=== PATIENT | male | born 1940 | race Caucasian/White ===

== ENCOUNTER → 2020-05-29 13:09 | Outpatient (CLI) | payer OTHER, SELFPAY ==
--- NOTE | ~2020-05-29 | MR_ITS ---
EXAMINATION: MR brain/brain stem wo con DATE: 05/29/2020 13:48 INDICATION: Memory loss. Vertigo. TECHNIQUE: Magnetic resonance imaging (MRI) of the brain and brainstem was performed without intraven ous contrast. Sequences included sagittal and axial T1-weighted FSE, axial diffusion-weighted FS EPI, axial T2*-weighted GRE, axial T2-weighted FLAIR Propeller, and axial T2-weighted Propeller. Apparent diffusion coefficient (ADC) maps were created. COMPARISON: None. FINDINGS: There are scattered areas of nonspecific increased T2-weighted signal intensity in the cere bral white matter. There is no intracranial hemorrhage, acute infarction, or abnormal intracranial ma ss lesion. The ventricles are normal in size. There is mild mucosal thickening in the paranasal sinus es. There are likely changes of ocular lens replacement surgeries. The mastoid air cells are normal. IMPRESSION: 1. Moderate nonspecific cerebral white matter disease, which likely represents chronic small vessel i schemic disease. Reviewed, dictated and finalized at location A. L OPERATOR IMPRESSION: 1. Moderate nonspecific cerebral white matter disease, which likely represents chronic small vessel ischemic disease.
== END ==
PROVIDERS: PCP Family Medicine Adolescent Medicine; Visit Provider Family Medicine Adolescent Medicine
DX: R41.3 Other amnesia (principal); R42 Dizziness and giddiness; R93.0 Abnormal findings on diagnostic imaging of skull and head, not elsewhere classified
CPT/HCPCS: 70551

== ENCOUNTER → 2020-09-01 13:39 | Outpatient (CLI) | payer OTHER, SELFPAY ==
--- NOTE | ~2020-09-01 | XR_ITS ---
EXAMINATION: XR chest 2V DATE: 09/01/2020 14:29 INDICATION: Shortness of breath. TECHNIQUE: Frontal and lateral views of the chest were obtained. COMPARISON: Chest 2 views 10/12/2018, chest CT 10/16/2018 FINDINGS: The chest demonstrates clear lungs without pneumonia, pleural effusion, or pneumothorax. Th e heart size is normal. There are changes of aortic valve replacement. IMPRESSION: 1. No acute cardiopulmonary disease. Reviewed, dictated and finalized at location A.
== END ==
PROVIDERS: Visit Provider Nurse Practitioner Adult Health
DX: R06.00 Dyspnea, unspecified (principal)
CPT/HCPCS: 71046

== ENCOUNTER → 2020-12-22 14:11 | Outpatient (CLI) | payer OTHER, SELFPAY ==
--- NOTE | ~2020-12-22 | XR_ITS ---
XR chest 2V 12/22/2020 14:37 Indication: Shortness of breath Procedure: 2 view chest Comparison: Comparison to multiple prior studies sequentially, with oldest reviewed study dated 07/19. Findings: Status post median sternotomy for CABG. Heart size normal. No focal air space disease, pulm onary edema, pleural effusion or suspected pneumothorax. There is a prosthetic heart valve. No acute osseous abnormality. Impression: 1: No acute cardiopulmonary disease. Reviewed, dictated and finalized at location A. Impression: 1: No acute cardiopulmonary disease.
== END ==
PROVIDERS: PCP Family Medicine Adolescent Medicine; Visit Provider Physician Assistant
DX: R06.02 Shortness of breath (principal)
CPT/HCPCS: 71046

== ENCOUNTER 2021-01-18 12:29 | Outpatient (CLI) | payer OTHER, SELFPAY ==
--- NOTE | 2021-01-18 16:14 | WPDPFTINT ---
PFT Procedure Performed PFT Procedure Performed Spirometry with Pre/Post Bronchodilator Plethysmography (Lung Vol) Diffusing Cap (DLCO) Flow Vol Loop PFT Interpretation This is a pulmonary function test with pre and post-bronchodilator spirometry, plethysmography and diffusing capacity. The test was performed and results interpreted in accordance with the 2019 and 2005 ATS/ERS Task Force guidelines respectively using the Global Lung Function Initiative-2012 reference equations. Patient demonstrated good effort and cooperation. Reproducibility criteria were met. The quality of the pre bronchodilator spirometry maneuver was Grade A and post bronchodilator spirometry maneuver was Grade A. Findings: Spirometry: The contour the expiratory flow tracing is that of a witch's hat. The contour of the inspiratory flow tracing is normal. The pre bronchodilator FVC is 3.08 L, 78% predicted. The pre bronchodilator FEV1 is 2.33 L, 79% predicted. The FEV1: FVC ratio 76%. The post bronchodilator FVC is 3.10 L, representing 1% increase. The post bronchodilator FEV1 is 2.43 L, representing a 4% increase. Plethysmography: The total lung capacity is 5.27 L, 75% predicted. The functional residual capacity is 2.44 L, 64% predicted. The residual volume is 2.20 L, 84% predicted. Diffusing capacity: The absolute diffusion capacity is 16.3, 67% predicted. The diffusing capacity corrected for alveolar volume is 3.68, 100% predicted. Impression: There is a mild restrictive ventilatory abnormality with a normal FEV1. The spirometry is normal without evidence of an obstructive abnormality. There is no significant improvement after inhaling a single dose of albuterol. The Diffusing capacity is normal. There are no prior studies for comparison
== END 2021-01-18 12:30 | disposition home or self-care (01) ==
PROVIDERS: PCP Family Medicine Adolescent Medicine; Visit Provider Family Medicine Adolescent Medicine
DX: R06.02 Shortness of breath (principal); R94.2 Abnormal results of pulmonary function studies
CPT/HCPCS: 94060; 94726; 94729

== ENCOUNTER 2022-12-17 13:14 | Outpatient (CLI) | payer OTHER, SELFPAY ==
--- NOTE | ~2022-12-17 | CT_ITS ---
EXAMINATION: CT diagnostic chest wo con DATE: 12/17/2022 13:45 INDICATION: Dyspnea with exertion TECHNIQUE: Computed tomography (CT) of the chest was performed without intravenous contrast. The dose -length product was 471.34 mGy-cm. Automated exposure control and iterative reconstruction technique were employed. COMPARISON: CT dated 10/16/2018 FINDINGS: There is mediastinal lymphadenopathy. For instance right paratracheal lymph node measures 1 1 mm short axis, likely reactive. No significant pleural or pericardial effusion. Small hiatal hernia . There are gallstones. There is mild emphysema. There are coarse peripheral interstitial densities, consistent with chronic interstitial lung disease which has progressed since prior examination. There are calcified granulomas. Stable 5 mm left upper lobe nodule, image 50, likely benign. Calcified gra nuloma left upper lobe laterally. IMPRESSION: 1. Stable 5 mm left upper lobe nodule, likely benign. Recommend follow-up low dose CT chest in 12 mon ths. 2: Interval progression of chronic interstitial lung disease. Emphysema. 3: Mediastinal lymphadenopathy, likely reactive. Reviewed, dictated and finalized at location A. IMPRESSION: 1. Stable 5 mm left upper lobe nodule, likely benign. Recommend follow-up low d ose CT chest in 12 months. 2: Interval progression of chronic interstitial lung disease. Emphysema. 3: Mediastinal lymphadenopathy, likely reactive.
== END 2022-12-17 13:15 | disposition home or self-care (01) ==
PROVIDERS: PCP Family Medicine Adolescent Medicine; Visit Provider Nurse Practitioner Adult Health
DX: R06.09 Other forms of dyspnea (principal); R91.1 Solitary pulmonary nodule
CPT/HCPCS: 71250

== ENCOUNTER 2023-01-02 12:34 | Outpatient (CLI) | payer OTHER, SELFPAY ==
--- NOTE | 2023-01-07 17:31 | P.PCNPFT_ITS ---
PFT Procedure Performed PFT Procedure Performed Plethysmography (Lung Vol) Diffusing Cap (DLCO) Flow Vol Loop Spirometry w/o Bronchodil PFT Interpretation DOS: 01/02/2025 REQUESTING: Angela Thompson NP REASON FOR TESTING: Dyspnea on exertion PULMONARY FUNCTION TESTS Results are reliable and reproducible. Spirometry: FEV1 is 2.48 L, 86% predicted, normal. FVC is 3.03 L, 78% predicted, normal. FEV1/FVC is 82%, normal. No bronchodilator was given. Lung volumes: Total lung capacity is 4.31 L, 61%, mild restriction. Residual volume is 1.23 L, 46%. RV/TLC is 29%, below lower limit of normal. Normal airway resistance. Diffusion: DLCO is 13.3, 56%, moderately decreased. DLCO/VA is 3.31, 91%, c orrected for alveolar volume. Flow volume loop: Restrictive pattern. IMPRESSION: No obstruction, mild restriction, moderate diffusion impairment. No bronchodilator was given. Compared to a study 01/18/2021, there is progression of restriction and diffusion impairment. Spirometry is the same, TLC was 75% equal to 5.27 L, now about 1 L lower and 61%. The DLCO was 16.3 and 67%, now 13.1 and 56%. The DLCO/VA was 3.68 and 100%, now 3.31 and 91%. Marion Thurman MD
== END 2023-01-02 12:35 | disposition home or self-care (01) ==
LOC: ANHPFT 12:35
PROVIDERS: PCP Family Medicine Adolescent Medicine; Visit Provider Nurse Practitioner Adult Health
DX: R06.09 Other forms of dyspnea (principal)
CPT/HCPCS: 94375; 94726; 94729

== ENCOUNTER 2023-02-03 08:13 | Outpatient (CLI) | payer OTHER, SELFPAY ==
--- NOTE | 2023-02-04 13:59 | WPDSIXMINUTE ---
Six Minute Walk Procedure Procedure Performed Pulmonary Stress Test (6 min walk) Six Minute Walk Six Minute Walk: This 6 minute walk test was carried out with the patient breathing ambient air. The pre walk baseline oxyhemoglobin saturation was 94%. The patient walked approximately 305 m with no stops during testing. During the walk the oxyhemoglobin saturation remained 90% or higher. Impression: No evidence of oxyhemoglobin desaturation on this testing.
== END 2023-02-03 08:14 | disposition home or self-care (01) ==
PROVIDERS: PCP Family Medicine Adolescent Medicine; Visit Provider Internal Medicine Pulmonary Disease
DX: Z87.891 Personal history of nicotine dependence (principal)
CPT/HCPCS: 94618

== ENCOUNTER 2023-06-19 12:35 | Outpatient (CLI) | payer OTHER, SELFPAY ==
--- NOTE | 2023-06-20 09:29 | WPDPFTINT ---
PFT Procedure Performed PFT Procedure Performed Spirometry with Pre/Post Bronchodilator Plethysmography (Lung Vol) Diffusing Cap (DLCO) Flow Vol Loop PFT Interpretation Lung volumes were measured with the body plethysmography method. The diminished lung volumes, especially the total lung capacity, are indicative of restrictive respiratory disease. Spirometry showed normal expiratory flow rates and a normal FEV1 to FVC ratio of 81%. Following administration of a bronchodilator there was no significant increase in expiratory flow rates. Lung diffusion capacity is diminished at 61% predicted. The flow volume loop is unremarkable. In comparison to previous study in December of 2022, FVC and FEV1 have not changed significantly whereas the TLC is now greater by approximately 0.9 L. Lung diffusion capacity is also unchanged. In pressure: Mild restrictive respiratory disease; mild reduction in lung diffusion capacity.
--- NOTE | 2023-06-20 09:37 | WPDSIXMINUTE ---
Six Minute Walk Procedure Procedure Performed Pulmonary Stress Test (6 min walk) Six Minute Walk Six Minute Walk: This 6 minute walk test was conducted with the patient breathing ambient air. The pre-walk baseline oxyhemoglobin saturation was 95%. The patient walked 335 m with no stops during testing. During the walk the oxyhemoglobin saturation remained in the range of 89% to 95%. Impression: No evidence of significant oxyhemoglobin desaturation on this testing.
== END 2023-06-19 12:36 | disposition home or self-care (01) ==
PROVIDERS: PCP Family Medicine Adolescent Medicine; Visit Provider Internal Medicine Pulmonary Disease
DX: J84.9 Interstitial pulmonary disease, unspecified (principal); Z87.891 Personal history of nicotine dependence; R94.2 Abnormal results of pulmonary function studies
CPT/HCPCS: 94060; 94618; 94726; 94729

== ENCOUNTER 2023-06-19 12:36 | Outpatient (CLI) | payer OTHER, SELFPAY ==
--- NOTE | ~2023-06-19 | CT_ITS ---
EXAMINATION:CT chest high resolution wo ut DATE: 06/19/2023 14:33 INDICATION: Interstitial pulmonary disease, unspecified. TECHNIQUE: Computed tomography (CT) of the chest was performed without intravenous contrast. Automate d exposure control and iterative reconstruction technique were employed. The dose-length product (DLP ) was 368.03 mGy-cm. COMPARISON: Chest CT 12/17/2022, 10/16/18 FINDINGS: There is widespread septal thickening in the lungs with a peripheral predominance. There is mild bronchiectasis in right lower lobe. There is honeycombing in right upper lobe. There is a 5 mm nodule in left lung upper lobe, stable from 10/16/18, likely benign. Calcified bilateral lung nodules and calcified left hilar lymph nodes are consistent with old granulomatous disease. There is a mildly enlarged mediastinal lymph node, likely reactive. No pleural effusion. The heart size is normal. The re are coronary artery calcifications. There are changes of aortic valve replacement. No pericardial effusion. There is a small sliding hiatal hernia. There is a gallstone in the gallbladder, which is n ormal in size. There is severe cervical and thoracic spondylosis. There is mild chronic height loss o f multiple vertebral bodies series. IMPRESSION: 1. Stable chronic interstitial lung disease in a pattern of usual interstitial pneumonia (UIP). 2. Stable pulmonary nodule, likely benign. Reviewed, dictated and finalized at location E. FOLD BUILDER
== END 2023-06-19 12:37 | disposition home or self-care (01) ==
PROVIDERS: PCP Family Medicine Adolescent Medicine; Visit Provider Internal Medicine Pulmonary Disease
DX: J84.9 Interstitial pulmonary disease, unspecified (principal); R91.8 Other nonspecific abnormal finding of lung field
CPT/HCPCS: 71250

== ENCOUNTER 2023-11-05 12:54 | Outpatient (CLI) | payer OTHER, SELFPAY ==
--- NOTE | ~2023-11-05 | CT_ITS ---
CT Scan of the Chest without Contrast: Clinical Indication: Interstitial lung disease Technique: Contiguous sections were acquired throughout the chest without intravenous contrast. Dose reduction technique was used on this scan by utilizing automated exposure control and iterative recon struction technique. The dose-length product (DLP) was 425.04 mGy-cm. COMPARISON: 06/19/2023 Findings: There is no evidence of any significant mediastinal, hilar or axillary lymphadenopathy. Coronary malinda ry calcifications are present. Aortic valve replacement noted. There is no evidence of pleural or pericardial effusion. There is diffuse, peripheral subpleural reticulation and interstitial thickening. No lavelle bronchiect asis evident. Possible focal honeycombing peripherally in the right upper lobe. Stable 5 mm left uppe r lobe pulmonary nodule (axial image 49). Images through the upper abdomen reveal small calcified gallstone. Impression: Chronic interstitial disease, as detailed above, stable from most recent prior exam. Stable 5 mm left upper lobe pulmonary nodule. Reviewed, dictated and finalized at [facility]. Impression: Chronic interstitial disease, as detailed above, stable from most recent prior exam. Stable 5 mm left upper lobe pulmonary nodule.
--- NOTE | 2023-11-06 07:09 | WPDSIXMINUTE ---
Six Minute Walk Procedure Procedure Performed Pulmonary Stress Test (6 min walk) Six Minute Walk Six Minute Walk: This is a 6 minute walk test. The test was performed and interpreted in accordance with the 2014 ERS/ATS task force guidelines. Findings: The patient's resting room air oxygen saturation measured by pulse oximetry was 95% and heart rate was 61 bpm. Patient ambulated for 366 meters and oxygen saturation remained 92 to 95%. Heart rate at the end of the study was 82 bpm. The patient did not qualify for supplemental oxygen at rest or with ambulation. There are no prior studies for comparison.
--- NOTE | 2023-11-06 07:11 | WPDPFTINT ---
PFT Procedure Performed PFT Procedure Performed Spirometry with Pre/Post Bronchodilator Plethysmography (Lung Vol) Diffusing Cap (DLCO) Flow Vol Loop PFT Interpretation This is a pulmonary function test with pre and post-bronchodilator spirometry, plethysmography and diffusing capacity. The test was performed and results interpreted in accordance with the 2019 and 2005 ATS/ERS Task Force guidelines respectively using the Global Lung Function Initiative-2012 reference equations. Patient demonstrated good effort and cooperation. Reproducibility criteria were met. The quality of the pre bronchodilator spirometry maneuver was Grade A and post bronchodilator spirometry maneuver was Grade A. Findings: Spirometry: The contour the inspiratory and expiratory flow tracing are normal. The pre bronchodilator FVC is 3.22 L, 81% predicted. The pre bronchodilator FEV1 is 2.51 L, 86% predicted. The pre bronchodilator FEV1: FVC ratio 78%. The post bronchodilator FVC is 3.32 L, representing a 3% increase. The post bronchodilator FEV1 is 2.60 L, representing a 4% increase. The post bronchodilator FEV1: FVC ratio 78%. Plethysmography: The total lung capacity is 4.33 L, 60% predicted. The functional residual capacity is 1.73 L, 44% predicted. The residual volume is 1.11 L, 41% predicted. Diffusing capacity: The diffusing capacity unadjusted for hemoglobin and carboxyhemoglobin is 14.7, 61% predicted. The diffusing capacity adjusted for alveolar volume is 3.32, 94% predicted. Impression: There is a mild restrictive ventilatory abnormality with a normal FEV1. The spirometry is normal without evidence of an obstructive abnormality. There is no significant improvement after inhaling a single dose of albuterol. The diffusing capacity unadjusted for hemoglobin and carboxyhemoglobin is mildly decreased and normalizes when adjusted for alveolar volume. There are no prior studies for comparison
== END 2023-11-05 12:55 | disposition home or self-care (01) ==
PROVIDERS: PCP Family Medicine Adolescent Medicine; Visit Provider Internal Medicine Pulmonary Disease
DX: J84.9 Interstitial pulmonary disease, unspecified (principal); R91.1 Solitary pulmonary nodule; R94.2 Abnormal results of pulmonary function studies
CPT/HCPCS: 71250; 94060; 94618; 94726; 94729

== ENCOUNTER 2024-08-06 10:48 | Outpatient (CLI) | payer OTHER, SELFPAY ==
--- NOTE | ~2024-08-06 | CT_ITS ---
CT Scan of the Chest without Contrast: Clinical Indication: Interstitial pulmonary disease Technique: Contiguous sections were acquired throughout the chest without intravenous contrast. Dose reduction technique was used on this scan by utilizing automated exposure control and iterative recon struction technique. The dose-length product (DLP) was 277.14 mGy-cm. COMPARISON: 11/05/2023 Findings: There is no evidence of any significant mediastinal, hilar or axillary lymphadenopathy. Coronary malinda ry calcifications are present. Status post aortic valve replacement. There is no evidence of pleural or pericardial effusion. There is chronic interstitial disease with peripheral interstitial thickening and subpleural reticula tion, essentially stable from prior exam. Stable 5 mm left upper lobe pulmonary nodule (axial image 4 4). Images through the upper abdomen reveal small calcified gallstone. Impression: Peripheral chronic interstitial disease, essentially unchanged. Stable 5 mm left upper lobe pulmonary nodule. Cholelithiasis. Reviewed, dictated and finalized at [facility]. Impression: Peripheral chronic interstitial disease, essentially unchanged. Stable 5 mm left upper lobe pulmonary nodule. Cholelithiasis.
--- OUTSIDE RECORDS SUMMARY | 2024-08-06 11:37 | XMS_ITS | Continuity of Care Document ---
Author Organization [facility] Address [address] [place] [address] Phone Care Team Providers Care Back Shoe Cutter Name Role Phone Luis Enrique Dillard MD Unavailable Unavailable Medications Medication Instructions Dosage Effective Dates (start - stop) Status Comments LIPITOR (unknown strength) take 1 tablet (10MG) by ORAL route every day Not Available - Active Procedures Procedure Date OFFICE/OUTPATIENT VISIT, NEW OFFICE/OUTPATIENT VISIT, NEW Advance Directives Directive Yes / No Effective Date File Name Resuscitation Not Answered N/A N/A Life Support Not Answered N/A N/A Intubation Not Answered N/A N/A Antibiotics Not Answered N/A N/A IV Fluid Support Not Answered N/A N/A Tube Feed Not Answered N/A N/A Other Directive N/A N/A WARNING:The information contained in this section is historical and is provided for information only and does not constitute a legal document or any assurance that the information is still accurate. Please verify the information with the hernandez of the legal document before using it for clinical purposes. Encounters Encounter Description Practice Location Reason(s) For Visit Diagnoses Date Provider Providers Copied on Encounter OFFICE/OUTPAT IENT VISIT, [facility] [place], [address], [place], [place], [id number], [place] tel:[phone] [facility] Office decreased vision (chief complaint) Senile nuclear sclerosis 0 Gilma Dudley. [address], [address], [place], [address], [place]. tel:[phone] Family History Family Member Type Diagnosis Age At Onset No Information Payers Payer name Insurance type Covered constitution party ID Authoriza cathion(s) [facility] [id number] Social History Type Description Quantity Date Captured Comments Alcohol Use Details No Caffeine Use Details Unknown Tobacco Use Status No Information Smoking Status No Information Sex Male Chief Complaint And Reason For Visit From encounter dated '12/07/2009 14:00'. decreased vision (chief complaint) Plan Of Treatment Date Type Action Status No Information History Of Present Illness Encounter Date Complaint History Of Prese nt Illness No Information Instructions Date Instruction Additional Infor mation Cataract, Nuclear Sc lerosis, OU-interested in Restor Related to Cataract, Nuclear Sclerosis - 1 Year Related to Catar act, Nuclear Sclerosis Assessments Type Assessment Date No Information
--- OUTSIDE RECORDS SUMMARY | 2024-08-06 11:37 | XMS_ITS | Clinical Summary ---
Author Organization [facility] Address [address] [place] [address] Care Team Providers Care Associate Program Manager Name Role Phone Quang Carrillo MD Primary Care Provider [phone] Avel Salinas MD Unavailable [phone] Active Problems Problem Noted Date Diagnosed Date Aortic valve stenosis Social History Tobacco Use Types Packs/Day Years Used Date Smoking Tobacco: Never Assessed Sex and Gender Information Value Date Recorded Sex Assigned at Not on file Legal Sex Male 2:57 PM CDT Gender Identity Not on file Sexual Orientation Not on file Plan of Treatment Health Maintenance Due Date Last Done Comments Pneumococcal Vaccine: 65+ Ye ars (1 of 2 - PCV) 1948 DTaP, Tdap and Td Vaccines ( 1 - Tdap) 1961 Zoster Vaccines (1 of 2) 1992 Annual Medicare Wellness Visit 10/31/2007 RSV Immunization or 60+ Years (1 - 1-dose 75+ series) 2017 COVID-19 Vaccine (2023-2 5 season) 2024 Influenza Adult (#1) 2024 Meningococcal B Vaccine Aged Out No l onger eligible based on patient's age to complete this topic Meningococcal Vaccine Aged Out No tiffany pam eligible based on patient's age to complete this topic RSV Immunizations Under 20 Months Aged Out No longer eligible based on patient's age to complete this topic [place] [facility] [id number] [employer] Care Teams Associate Program Manager Relationship Specialty Start Date End Date Quang Carrillo MD [address] [place] [address] PCP - General FAMILY PRACTICE 11/30/18 Avel Salinas MD [facility] [address] [place] [address] [place] Assistant Manager INTERVENTIONAL CARDIOLOGY 12/02/18
== END 2024-08-06 10:49 | disposition home or self-care (01) ==
PROVIDERS: PCP Family Medicine Adolescent Medicine; Visit Provider Internal Medicine Pulmonary Disease
DX: J84.9 Interstitial pulmonary disease, unspecified (principal); R91.1 Solitary pulmonary nodule; K80.20 Calculus of gallbladder without cholecystitis without obstruction
CPT/HCPCS: 71250

== ENCOUNTER 2024-11-24 10:12 | Outpatient (CLI) | payer OTHER, SELFPAY ==
--- NOTE | ~2024-11-24 | XR_ITS ---
Lumbosacral Spine: AP and lateral views Clinical History: Pain Findings: The normal lordotic curve is maintained. No acute fracture. There is 13 mm anterolisthesis of L5 over S1. There is severe degenerative disc narrowing at L5-S1. There is moderate degenerative s shaye L5. There is severe facet arthropathy L4-L5 and L5-S1. There is moderate to advanced facet arth ropathy at L3-L4. There are minimal degenerative change at the upper lumbar spine. The sacroiliac ashley nts are normally outlined. Impression: Severe degenerative spondylosis of the lower lumbar spine, with associated 13 mm anterolisthesis of L 5 over S1. Reviewed, dictated and finalized at location M. Impression: Severe degenerative spondylosis of the lower lumbar spine, with associated 13 m m anterolisthesis of L5 over S1.
== END 2024-11-24 10:13 | disposition home or self-care (01) ==
LOC: MICIMG 10:13
PROVIDERS: PCP Family Medicine Adolescent Medicine; Visit Provider Nurse Practitioner Family
DX: M47.26 Other spondylosis with radiculopathy, lumbar region (principal)
CPT/HCPCS: 72100

== ENCOUNTER 2025-03-24 14:03 | Outpatient (CLI) | payer OTHER, SELFPAY ==
--- NOTE | ~2025-03-24 | MR_ITS ---
EXAMINATION: MR lumbar spine wo con DATE: 03/24/2025 14:43 INDICATION: Lumbar radiculopathy. Low back pain. TECHNIQUE: Magnetic resonance imaging (MRI) of the lumbar spine was performed without intravenous contrast. Sequences included sagittal T2-weighted FSE, sagittal T2-weighted FS FSE, sagittal T1-weighted FSE, and axial T2-weighted FSE. COMPARISON: Lumbar spine radiographs 11/24/2024 FINDINGS: There is 5 degrees dextrocurvature of thoracic lumbar spine. There are chronic bilateral L5 pars defects. There is 10 mm anterolisthesis of L5 on S1. There is 5 mm retrolisthesis of L4 on L5. There is mild chronic height loss of T12 and L1 vertebral bodies. There is chronic 2/5 loss of height of L5 vertebral body posteriorly. There is mildly decreased disc height at T12-L1 and L1-L2, moderately decreased disc height at L4-L5, and severely decreased disc height at L5-S1. Epidural lipomatosis is noted. The distal spinal cord signal intensity is normal. The conus medullaris is at L1. The following disc levels are specifically discussed: L1-L2: The disc is bulging. There is mild bilateral facet joint osteoarthritis. There is moderate bilateral neural foraminal stenosis. There is mild central canal stenosis. L2-L3: The disc is bulging. There is severe bilateral facet joint osteoarthritis. There is moderate right and mild left neural foraminal stenosis. There is mild central canal stenosis. L3-L4: The disc is bulging and has an annular fissure. There is mild bilateral facet joint osteoarthritis. There is moderate right and mild left neural foraminal stenosis. There is no central canal stenosis. L4-L5: The disc is bulging and has an annular fissure. There is mild bilateral facet joint osteoarthritis. There is severe bilateral neural foraminal stenosis. There is no central canal stenosis. L5-S1: The disc does not extend beyond the endplate margin. There is moderate bilateral facet joint osteoarthritis. There is moderate bilateral neural foraminal stenosis. There is no central canal stenosis. IMPRESSION: 1. Severe lumbar spondylosis. 2. Chronic bilateral L5 pars defects with grade 2 anterolisthesis of L5 on S1. Reviewed, dictated and finalized at location E.
--- OUTSIDE RECORDS SUMMARY | 2025-03-24 14:40 | XMS_ITS ---
Author Name Giovanna RAYMOND, MRS. Villalobos npal Address [id number] [place] [address] [place] [address] Phone [phone] Organization [facility] ([facility]) Care Team Providers Care Painter And Body Mechanic Apprentice Name Role Phone GiovannaNavid Unavailable [phone] Jose Enrique Henry Unavailable [phone] YO ELIZALDE Unavailable [phone] Quang Carrillo Unavailable [phone] Reason for Referral Not Available Allergies, adverse reactions, alerts No known allergies History of medication use Medication Class Instructions Start Date End Date Atorvastatin Calcium 40 mg Tab TAKE 1 TABLET BY MOUTH EVERY DAY 2024-07-19 No Data Available Tamsulosin 0.4 mg Cap TAKE 1 CAPSULE BY MOUTH EVERY DAY 2024-03-15 No Data Available Metoprolol Succinate ER 25 mg Tab ER 24hr TAKE 1/2 TABLET BY MOUTH EVERY DAY 2024-06-08 No Data Available Diclofenac Sodium 50 mg Tab delayed rel 1 tablet orally 2 times per day PRN 2024-10-08 No Data Available predniSONE 20 mg Tab as directed 2024-10-08 No Data Available Aspirin EC 81 mg Tab delayed rel 1 tablet orally daily 2024-10-08 No Data Available Vitamin B12 1000 MCG Tab 2 tablets orally daily 10-08 No Data Available Centrum Silver 50+Men Tab once daily 2024-10-08 No Data Available Problem List Problem Status Onset Date Resolved Date Synopsis HTN (hypertension) Active 2024-10-08 N/A N/A HLD (hyperlipidemia) Active 2024-10-08 N/A N/A BPH (benign prostatic hyperplasia) Active 2024-10-08 N /A N/A COPD (chronic obstructive pulmonary disease) Active 18-10-15 N/A N/A Diabetes mellitus Active 2024-10-08 N/A N/A CAD (coronary artery disease) Active 2024-10-08 N/A N/A Encounters Encounters Type Facility Date of Service Diagnosis/Co mplaint Home visit for evaluation and management of new patient requiring medically appropriate examination and moderate level of medical decision making. If using time, at least 60 minutes total time on [facility] [place] 10/08/2024 Essential (primary) hypertensionHyperlipidemia, unspecifiedEnlarged prostate without lower urinary tract symptomsChronic obstructive pulmonary disease, unspecifiedAthscl heart disease of [place] coronary artery w/o ang pctrsType 2 diabetes mellitus without complicationsBody mass index (bmi) 30.0-30.9, adult Home visit for evaluation and management of new patient requiring medically appropriate examination and moderate level of medical decision making. If using time, at least 60 minutes total time on [facility] [place] 10/08/2024 Essential (primary) hypertension Vital Signs Date of Collection Vitals 2024-10-08 07:15:00 Height - 177.8 cmWei ght - 95.26 kgBody Mass Index (BMI) - 30.13 kg/m2BP Diastolic - 90.0 mm[Hg]BP Systolic - 160.0 mm[Hg]Heart Rate - 68.0 /minRespiratory Rate - 18.0 /minBody Temperature - 36.72 CelO2 % BldC Oximetry - 95.0 % Social History Sex Male History of Procedures Procedures Service Procedure code Service date Servicing provider Phone# Home visit for evaluation and management of new patient requiring medically appropriate examination and moderate level of medical decision making. If using time, at least 60 minutes total time on [facility] [id number] 2024-10-08 No Data Available No Data Availa ble Advance care planning discussion documented in medical record [id number] 2024-10-08 No Data Available No Data Avai lable Functional Status Functional Category Effective Dates continues to drive 2024-10-08 lives along; independent with ADL's 2024 Mental Status Status Date no cognitive issues 2024-10-08 Assessments Date of Service Assessments 2024-10-08 07:15:00 HTN (hypertension)HL D (hyperlipidemia)BPH (benign prostatic hyperplasia)COPD (chronic obstructive pulmonary disease)CAD (coronary artery disease)Diabetes mellitus Plan of Care Date of Service Plans 2024-10-08 07:15:00 PCP visit - 05/14/20 25 (got labs drawn and results discussed with pt by provider)Cardiology - every 6 month f/u (Haritha Bhakta, MJ)Pulmonary - every 6 monthsBP elevated; reports he took his metoprololcontinue metoprolol 25 mg 0.5 tablet dailyrecommended checking BP at home x 1 week and loggingdiscuss BP readings with mortgage assistant and/or PCPdiscussed caffeine and sodium intake (microwave meals)encouraged patient to drink more water on a daily basischroniccontinue atorvastatin 40 mg once dailyheart healthy dietchroniccontinue tamsulosin 0.4 mg once dailyd/w PCP regarding increased urinary frequency and urgency with some incontinencemonitor PSA levels annuallychroniccurrently not on any treatmentFollows pulmonary every 6 monthschroniccontinue atorvastatin 40mg once daily and aspirin 81 mg once dailyfollowed by cardiology about every 6 monthscurrently not on any treatmentpatient reports his last A1C was around 7.0last A1C noted in [facility] 11/2023 7.8 Goals Date Goal 2024-10-08 Encouraged patient t o drink water Health Concerns Date Concern 2024-10-08 Healthy House Calls is a service that involves a physician or advanced practice provider conducting comprehensive assessments in your patient s home or virtually to address crucial areas such as chronic conditions, quality gaps, social concerns, fall risk prevention, and various screenings. Please note that your patient will remain attributed to you even though they are participating in this service. If you have any questions, please reach out directly to our team at the phone number above.Your patient, Taqueria Valles, 1940, was seen today for a Healthy House Call visit. Patient read rights and responsibilities and consented to treatment. The purpose of this summary is to update you on the patient's current health status and share any relevant findings from the examination. 2024-10-08 Left leg pain x a fe w months. Improved with diclofenac BID. D/w patient the risk of bleeding when taking and NSAID and aspirin.
--- OUTSIDE RECORDS SUMMARY | 2025-03-24 14:40 | XMS_ITS | Clinical Summary ---
Author Organization [facility] Address [address] [place] [address] Care Team Providers Care Nutritional Services Director Name Role Phone Quang Carrillo MD Primary Care Provider [phone] Avel Salinas MD Unavailable [phone] Active Problems Problem Noted Date Diagnosed Date Aortic valve stenosis Social History Tobacco Use Types Packs/Day Years Used Date Smoking Tobacco: Never Assessed Sex and Gender Information Value Date Recorded Sex Assigned at Not on file Legal Sex Male 2:57 PM CDT Gender Identity Not on file Sexual Orientation Not on file Plan of Treatment Health Maintenance Due Date Last Done Comments DTaP, Tdap and Td Vaccines ( 1 - Tdap) 1961 Pneumococcal Vaccine: 50+ Ye ars (1 of 2 - PCV) 1961 Zoster Vaccines (1 of 2) 1992 Annual Medicare Wellness Visit 10/31/2007 RSV Immunization or 60+ Years (1 - 1-dose 75+ series) 2017 COVID-19 Vaccine ( - 2024-2 6 season) 2025 Influenza Adult (#1) 2025 Hepatitis A Vaccines Aged Out No long er eligible based on patient's age to complete this topic Meningococcal B Vaccine Aged Out No l onger eligible based on patient's age to complete this topic Meningococcal Vaccine Aged Out No tiffany pam eligible based on patient's age to complete this topic RSV Immunizations Under 20 Months Aged Out No longer eligible based on patient's age to [place] [address] [employer] Care Teams Nutritional Services Director Relationship Specialty Start Date End Date Quang Carrillo MD [address] [place] [address] [address] [place] [address] PCP - General FAMILY PRACTICE 11/30/18 Avel Salinas MD [facility] [address] [place] [address] [place] [employer] INTERVENTIONAL CARDIOLOGY 12/02/18
--- OUTSIDE RECORDS SUMMARY | 2025-03-24 14:40 | XMS_ITS | Clinical Summary ---
Author Organization [facility] [place] [address] Address [address] [place] [address] Care Team Providers Care Loading Unit Operator Name Role Phone Quang Carrillo MD Primary Care Prov ider Jose Enrique Henry MD Unavailable [phone] Allergies No known active allergies Medications aspirin 81 mg enteric coated tabletIndicatio ns:prevention of thrombosis Take 1 tablet (81 mg total) by mouth nightly 9 Active multivit-min/fe rrous fumarate (MULTI VITAMIN ORAL)Indication s:supplement Take 1 tablet by mouth nightly 9 Active tamsulosin (FLOMAX) 0.4 mg extended release capsule Take by mouth daily [address] (VOLTAREN) 75 mg EC tablet 4 Active donepeziL (ARICEPT) 5 mg tablet Take 1 tablet (5 mg total) by mouth nightly 4 Active atorvastatin (LIPITOR) 40 mg tablet TAKE 1 TABLET BY MOUTH EVERY DAY 90 tablet 1 5 Active metoprolol XL (TOPROL-XL) 25 mg extended release tablet TAKE 1/2 TABLET BY MOUTH EVERY DAY 45 tablet 1 5 Active albuterol HFA (PROVENTIL HFA,VENTOLIN HFA,PROAIR HFA) 90 mcg/actuation inhaler 1 - 2 PUFF INHALED EVERY 4 - 6 HOURS NEEDED FOR SHORTNESS OF BREATH OR WHEEZING 5 Active finasteride (PROSCAR) 5 mg tablet Take 1 tablet (5 mg total) by mouth daily 5 Active Active Problems Problem Noted Date Diagnosed Date Pulmonary fibrosis 06/18/2023 Mixed hyperlipidemia 06/13/2021 H/O TIA (transient ischemic attack) and stroke 0 06/13/2021 ARMENDARIZ (dyspnea on exertion) 04/17/2020 TIA (transient ischemic attack) 02/04/2019 Carotid artery disease ([facility]/HCC) 02/04/2019 Postoperative atrial fibrillation (CMS/HCC) 11/23 Assessment & Plan (12/10/2018 11:46 AM CDT): Brief episode of A. Fib overnight; patient is asymptomatic; patient converted himself Leukocytosis 12/10/2018 Assessment & Plan (12/10/2018 1:10 PM CDT): Likely reactive from procedure WBC trending down from yesterday Encourage use of incentive spirometer and ambulation Will continue to follow Acute post-operative pain 12/07/2018 Assessment & Plan (12/11/2018 1:09 PM CDT): Controlled on oxycodone Assessment & Plan (12/09/2018 2:04 AM CDT): Expected postop pain following cardiac surgery. - PRN Tylenol and Oxycodone once able to take PO. Assessment & Plan (12/07/2018 5:44 PM CDT): Expected postop pain following cardiac surgery. - PRN fentanyl until extubated. - PRN Tylenol and Oxycodone once able to take PO. Acute blood loss anemia 12/07/2018 Assessment & Plan (12/09/2018 2:05 AM CDT): S/p cardiac surgery c/b mediastinal re-exploration - No current indication for transfusion, consider if patient becomes hemodynamically unstable with increased pressor requirements or Hgb < 8 and symptomatic - CBC daily Assessment & Plan (12/08/2018 1:43 AM CDT): S/p cardiac surgery c/b mediastinal re-exploration - No current indication for transfusion, consider if patient becomes hemodynamically unstable with increased pressor requirements or Hgb < 8 and symptomatic - CBC daily CKD (chronic kidney disease) stage 3, GFR 30-59 ml/min 12/07/2018 Essential hypertension 10/26/2018 Assessment & Plan (12/11/2018 1:05 PM CDT): Continue beta shin Assessment & Plan (12/09/2018 2:05 AM CDT): - Nicardipine gtt for SBP goal 110-130 Assessment & Plan (12/08/2018 1:44 AM CDT): - Nicardipine gtt for SBP goal 110-130 S/P aortic valve replacement with prosthetic merline ve 10/26/2018 Assessment & Plan (12/11/2018 1:03 PM CDT): AVR done on 12/07 Increased metoprolol to 12.5 mg BID DC provena today TTE ordered Possible DC tomorrow Assessment & Plan (12/09/2018 2:04 AM CDT): Now s/p 23mm magnaese AVR. Post-op care: - Daily ASA - Colace and Senna for bowel regimen - SSI for glycemic control Q4 hrs - ADAT - SCDs for DVT ppx, SQH - PT for decreased mobility when able to participate Assessment & Plan (12/08/2018 1:42 AM CDT): Now s/p 23mm magnaese AVR. Post-op care: - Daily ASA starting tomorrow morning - Colace and Senna for bowel regimen - SSI for glycemic control Q4 hrs - ADAT after extubation - GI ppx with H2 shin until extubated - SCDs for DVT ppx, start SQH tomorrow morning if plts >100 - PT for decreased mobility when able to participate Dizziness 12/01/2013 Resolved Problems Problem Noted Date Diagnosed Date Resolved Date Acute respiratory failure 12/07/2018 Assessment & Plan (12/09/2018 2:05 AM CDT): Arrives from OR on 12/07 intubated. History of smoking (vape) per chart review). Post-procedural short-term ventilator support with anticipated extubation. Pt sedated with propofol on arrival from OR. - Extubated 12/08 to HHNC, weaned to NC - Pulmonary hygiene with IS, acapella, and C&DB after extubation - Wean supplemental O2 for SpO2 > 92% Assessment & Plan (12/07/2018 5:44 PM CDT): Arrives from OR on 12/07 intubated. History of smoking (vape) per chart review). Post-procedural short-term ventilator support with anticipated extubation. Pt sedated with propofol on arrival from OR. - Plan to wean sedation for PSV trial with goal extubation if no signs of active bleeding and pt hemodynamically stable - Pulmonary hygiene with IS, acapella, and C&DB after extubation - Wean supplemental O2 for SpO2 > 92% Hypotension 12/07/2018 12/08/2018 Assessment & Plan (12/07/2018 5:47 PM CDT): Hemodynamically supported on Norepinephrine 0.02mcg/kg/min on arrival from OR. Intra-op KM demonstrated normal biventricular function and a well-seated aortic valve. - Wean Norepi as tolerated for MAP goal >70 - Fluid resuscitation as needed Hypercholesterolemia 10/26/2018 022 Encounters Date Type Department Care Team Description 02/08/2025 10:30 AM CDT Office Visit [facility] Cardiology [address] [place] [address] Angela Thompson NP S/P aortic valve replacement with prosthetic valve (Primary Dx) from Last 3 Months Surgical History Surgery Date Site/Laterality Comments AORTIC VALVE REPLACEMENT CARDIAC VALVE REPLACEMENT 11/23/2018 - 12/23/2018 CATARACT EXTRACTION VASECTOMY Medical History Medical History Date Comments Hyperlipidemia Acute respiratory failure 12/07/2018 S/P AVR (aortic valve replacement) Postoperative atrial fibrillation (HCC) Hypertension TIA (transient ischemic attack) Heart disease valve Family History Medical History Relation Name Comments Hypertension Father kenroy valles Kidney disease Father kenroy valles Relation Name Status Comments Father kenroy valles Mother Social History Tobacco Use Types Packs/Day Years Used Date Smoking Tobacco: Former E-cigarettes Vaping Smokeless Tobacco: Never Quit: 2019 Tobacco Cessation:Counseling Given: Not Answered Alcohol Use Standard Drinks/Week Comments Not Currently 0 (1 standard drink = 0.6 oz pur e alcohol) Sex and Gender Information Value Date Recorded Sex Assigned at Not on file 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 Gender Identity Male 02/22/2021 10:42 AM CDT Sexual Orientation Straight 08/30/2020 10 :09 AM CDT Obstetrics History Last Filed Vital Signs Vital Sign Reading Time Taken Comments Blood Pressure 120/70 02/08/2025 11:20 AM CDT Pulse 65 02/08/2025 11:20 AM CDT Temperature 36.7 C (98 F) 08/21/2020 12:55 PM CDT Respiratory Rate 20 12/30/2018 1:58 PM CDT Oxygen Saturation 95% 02/08/2025 11:20 AM CDT Inhaled Oxygen Concentration - - Weight 94.1 kg (207 lb 6.4 oz) 02/08/2025 11:20 AM CDT Height 177.8 cm (5' 10) 02/08/2025 11:20 AM CDT Body Mass Index 29.76 02/08/2025 11:20 AM CDT Plan of Treatment Health Maintenance Due Date Last Done Comments Depression Screening 1940 Fall Risk Assessment 1940 Hepatitis B Screening 1958 DTaP/Tdap/Td Vaccine (1 - Tdap) 01/05/2005 5 Abdominal Aortic Aneurysm (AAA) Screen 10/31/2007 Well Visit 65+ 10/31/2007 Pneumococcal vaccine 65+ (2 of 2 - PCV) 12/22/2021 0 12/22/2020 Influenza Vaccine (#1) 2025 12/22/2023 Zoster Vaccine Completed 06/15/2021, 04/03/2021 Medical Devices Implanted Type Area Order Selector Device Identifier Shelf Expiration Date Model / Serial / Lot [employer] [id number] Erasmo s Perimount Magna Thermafix 23mm Bioprosthesis - [id number] - [id number] Implanted:Qty: 1 on 12/07/2018 by Gregg Johnston MD at [facility] N/A: Heart [employer] 02/19/2022 [id number] / [id number] / Insurance [facility] [place] [address] [facility] Advance Directives For more information, please contact: [phone] * Full Code (Latest Code Status on File) Date Activated Date Inactivated Comments 12/07/2018 5:42 PM 12/12/2018 7:22 PM Care Teams Loading Unit Operator Relationship Specialty Start Date End Date Quang Carrillo MD PCP - General Family Medicine 10/09/18 Jose Enrique Henry MD Consulting Physician Cardiology 11/19/18
== END 2025-03-24 14:04 | disposition home or self-care (01) ==
PROVIDERS: PCP Family Medicine Adolescent Medicine; Visit Provider Nurse Practitioner Family
DX: M47.26 Other spondylosis with radiculopathy, lumbar region (principal)
CPT/HCPCS: 72148